=== PATIENT | female | born 1965 | race American Indian/Alaskan Native ===

== ENCOUNTER 2018-01-13 16:36 | Observation (INO) | payer MEDICAID ==
[2018-01-13 16:40] VITALS: BMI 38.2
--- NOTE | 2018-01-13 17:41 | RAD ---
HISTORY: chest pain COMPARISON: No prior. FINDINGS: LUNGS: No active pulmonary disease. PLEURA: No significant pleural effusion identified, no pneumothorax apparent. CARDIOVASCULAR: Atherosclerotic aortic calcifications. Cardiomediastinal silhouette prominent. OSSEOUS STRUCTURES: Degenerative changes. VISUALIZED UPPER ABDOMEN: Normal. OTHER FINDINGS: None. IMPRESSION: No active disease.
[2018-01-13 17:42] LABS: ALB/GLOB RATIO 1.2 (1.1-1.8); CALCIUM 10.1 mg/dL (8.4-10.5); GFR AFRICAN-AMERICAN > 60; GFR NON-AFRICAN AMERICAN > 60
--- NOTE | 2018-01-13 17:45 | ED PDOC ---
Arrival/HPI - General Chief Complaint: Chest Pain Time Seen by Provider: 01/13/18 16:39 Historian: Patient - History of Present Illness Narrative History of Present Illness (Text): 01/13/18 17:42 52-year-old female with a history of hypertension and smoking presents today with mid substernal chest pain. Patient states pain started today while at rest. Patient states the pain is described as a pressure sensation along the anterior chest that radiates into the left axilla. The patient denies shortness of breath. Patient denies abdominal pain. No nausea or vomiting. Patient denies radiation of pain to the back. Patient denies dysuria or urinary frequency. Patient denies headaches or dizziness. No urinary symptoms. no other complaints. Past Medical History - Provider Review Nursing Documentation Reviewed: Yes - Travel History Have you recently traveled outside [place] w/in the past 3 mons?: No - Reproductive Menopause: Yes - Cardiac Hx Cardiac Disorders: Yes Hx Hypotension: Yes - Endocrine/Metabolic Hx Endocrine Disorders: Yes Hx Hypothyroidism: Yes - Psychiatric Hx Substance Use: No - Surgical History Hx Musculoskeletal Surgery: Yes (right ankle) - Anesthesia Hx Anesthesia: Yes Hx Anesthesia Reactions: No Hx Malignant Hyperthermia: No Family/Social History - Physician Review Nursing Documentation Reviewed: Yes Family/Social History: Unknown Family HX Smoking Status: Light Smoker < 10 Cigarettes Daily Hx Alcohol Use: Yes Frequency of alcohol use: Socially Hx Substance Use: No Allergies/Home Meds Allergies/Adverse Reactions: Allergies Penicillins Allergy (Verified 01/13/18 16:41) RASH Home Medications: Home Meds Medication Instructions Recorded Confirmed Bisoprolol/HCTZ [Ziac 5 MG-6.25 MG] 1 tab PO DAILY 01/13/18 01/13/18 Ergocalciferol [Drisdol 50,000 1 cap PO DAILY 01/13/18 01/13/18 Intl Units Cap] Levothyroxine Sodium [Levo-T] 50 mcg PO DAILY 01/13/18 01/13/18 Review of Systems - Review of Systems Constitutional: absent: Fatigue, Fevers Respiratory: absent: SOB, Cough Cardiovascular: Chest Pain. absent: Palpitations, Syncope Gastrointestinal: absent: Abdominal Pain, Constipation, Diarrhea, Nausea, Vomiting Genitourinary Female: absent: Dysuria, Frequency, Hematuria Musculoskeletal: absent: Arthralgias Skin: absent: Rash, Pruritis Neurological: absent: Headache, Dizziness Psychiatric: absent: Anxiety, Depression Physical Exam Vital Signs Reviewed: Yes Vital Signs Temp Pulse Resp BP Pulse Ox 01/13/18 17:08 98.1 F 61 18 169/90 H 98 Temperature: Afebrile Blood Pressure: Hypertensive Pulse: Regular Respiratory Rate: Normal Appearance: Positive for: Well-Appearing, Non-Toxic, Comfortable Pain Distress: None Mental Status: Positive for: Alert and Oriented X 3 - Systems Exam Head: Present: Atraumatic Mouth: Present: Moist Mucous Membranes Neck: Present: Normal Range of Motion Respiratory/Chest: Present: Clear to Auscultation, Good Air Exchange. No: Respiratory Distress, Accessory Muscle Use Cardiovascular: Present: Regular Rate and Rhythm, Normal S1, S2. No: Murmurs Abdomen: No: Tenderness, Distention, Peritoneal Signs, Rebound, Guarding Back: Present: Normal Inspection. No: CVA Tenderness Upper Extremity: Present: Normal ROM Lower Extremity: Present: Normal ROM. No: Edema, CALF TENDERNESS Neurological: Present: GCS=15, Speech Normal Skin: Present: Warm, Dry, Normal Color. No: Rashes Psychiatric: Present: Alert, Oriented x 3 Medical Decision Making ED Course and Treatment: 01/13/18 17:46 pt with chest pain. hypertensive on initial vitals. pt with hx of HTN and + smoker cbc; wnl cmp; wnl trop: wnl ekg; normal sinus rhythm at 64 bpm, no ST elevations normal axis normal intervals cxr: wnl asa pepcid pt reassessment; pt feeling slightly better. i discussed all results in depth with patient; case discussed with Dr. Lacey will Admit observational status to Tele for chest pain r/o acs. as patient with hx of HTN and smoking history. impression; chest pain Admit observational status to tele; Dr. lacey - Lab Interpretations Lab Results: 01/13/18 16:45 01/13/18 16:45 Lab Results 01/13/18 17:44: Urine Color yellow, Urine Appearance Slight-cloudy, Urine pH 6.0 , Ur Specific [place] 1.015, Urine Protein Negative, Urine Glucose (UA) Negative , Urine Ketones Negative, Urine Blood Small H, Urine Nitrate Negative, Urine Bilirubin Negative, Urine Urobilinogen 0.2, Ur Leukocyte Esterase Trace H, Urine RBC 15 - 20, Urine WBC 2 - 5, Ur Epithelial Cells 6 - 8, Amorphous Sediment Small 07/03/18 16:45: Sodium 142, Potassium 3.8, Chloride 106, Carbon Dioxide 26, Anion Gap 14, BUN 13, Creatinine 0.8, Est GFR ( Amer) > 60, Est GFR (Non- Af Amer) > 60, Random Glucose 84, Calcium 10.1, Magnesium 2.1, Total Bilirubin 0.7, AST 22, ALT 14, Alkaline Phosphatase 44, Lactate Dehydrogenase 557, Total Creatine Kinase 138, Troponin I < 0.01, Total Protein 7.4, Albumin 4.0, Globulin 3.4, Albumin/Globulin Ratio 1.2 01/13/18 16:45: WBC 5.9, RBC 4.99, Hgb 13.6, Hct 39.5, MCV 79.2 L, MCH 27.3, MCHC 34.4, RDW 13.8, Plt Count 252, MPV 10.6, Gran % 46.7 L, Lymph % (Auto) 40.7 H, [place] % (Auto) 9.4 H, Eos % (Auto) 2.9, Baso % (Auto) 0.3, Gran # 2.73, Lymph # (Auto) 2.4, [place] # (Auto) 0.6, Eos # (Auto) 0.2, Baso # (Auto) 0.02 - RAD Interpretation Radiology Orders: 01/13/18 17:08 CHEST PORTABLE [RAD] Stat - Medication Orders Current Medication Orders: Discontinued Medications Aspirin (Aspirin) 325 mg PO STAT STA Stop: 01/13/18 18:20 Famotidine (Pepcid) 20 mg IVP STAT STA Stop: 01/13/18 17:10 Last Admin: 01/13/18 17:28 Dose: 20 mg IVP Administration Document 01/13/18 17:28 (Rec: 01/13/18 17:28 [id number]) Charges for Administration # of IVP Administrations 1 Disposition/Present on Arrival - Present on Arrival Any Indicators Present on Arrival: No History of DVT/PE: No History of Uncontrolled Diabetes: No Urinary Catheter: No History of Decub. Ulcer: No History Surgical Site Infection Following: None - Disposition Have Diagnosis and Disposition been Completed?: Yes Diagnosis: Chest pain Disposition: HOSPITALIZED Disposition Time: 18:29 Patient Plan: Observation Patient Problems: Current Active Problems Problem Status Onset Chest pain Acute Condition: FAIR Discharge Instructions (ExitCare): Chest Pain (ED) Forms: [facility] ([place])
[2018-01-13 17:49] LABS: ALT/SGPT 14 U/L (7-56); AST/SGOT 22 U/L (14-36); BLOOD UREA NITROGEN 13 mg/dL (7-21)
[2018-01-13 17:51] LABS: BASO # 0.02 K/mm3 (0.0-2.0); BASO % 0.3 % (0.0-3.0); EOS # 0.2 (0.0-0.7); EOS % 2.9 % (1.5-5.0); GRAN # 2.73 (1.4-6.5); GRAN % 46.7 % (50.0-68.0); HEMOGLOBIN 13.6 g/dL (12.0-16.0); LYMPH # 2.4 (1.2-3.4); LYMPH % 40.7 % (22.0-35.0); MEAN CELL VOLUME 79.2 fl (80.0-105.0); MEAN CORPUSCULAR HEMOGLOBIN 27.3 pg (25.0-35.0); MEAN CORPUSCULAR HGB CONC 34.4 g/dl (31.0-37.0); MEAN PLATELET VOLUME 10.6 fl (7.0-11.0); MONO # 0.6 (0.1-0.6); MONO % 9.4 % (1.0-6.0); RBC 4.99 10^6/uL (3.5-6.1); RED CELL DISTRIBUTION WIDTH 13.8 % (11.5-14.5); WHITE BLOOD COUNT 5.9 10^3/ul (4.5-11.0)
[2018-01-13 17:52] LABS: TROPONIN I < 0.01 ng/mL
[2018-01-13 18:11] LABS: URINE BILIRUBIN NEGATIVE (NEGATIVE); URINE BLOOD SMALL (NEGATIVE); URINE GLUCOSE (UA) NEGATIVE (NEGATIVE); URINE LEUKOCYTE ESTERASE TRACE Leu/uL (NEGATIVE); URINE PROTEIN NEGATIVE mg/dL (<30 mg/dL); URINE UROBILINOGEN 0.2 E.U./dL (<1 E.U./dL)
[2018-01-13 18:25] LABS: URINE AMORPHOUS SEDIMENT SMALL; URINE APPEARANCE SLIGHT-CLOUDY (CLEAR); URINE RBC 15 - 20 /hpf (0-2)
--- NOTE | 2018-01-13 21:35 | CP.PCM.HP ---
<Daniel Colon - Last Filed: 01/13/18 21:31> History of Present Illness - History of Present Illness History of Present Illness: 52 y o female PMHx HTN, hypothyroidism, tobacco use, presents to the ED with mid substernal chest pain. Patient states that the pain started today while at rest. Describes pain as a pressure sensation along the anterior chest that radiates into the left axilla. Denies shortness of breath, abdominal pain, nausea or vomiting, or pain that migrates to her back. Denies dysuria, urinary frequency, headaches, dizziness. Pt states that the pain came on suddenly while she was seated at home, does admit to feeling stressed lately. Present on Admission - Present on Admission Any Indicators Present on Admission: No History of DVT/PE: No History of Uncontrolled Diabetes: No Urinary Catheter: No Decubitus Ulcer Present: No History Surgical Site Infection Following: None Review of Systems - Constitutional Constitutional: As Per HPI. absent: Anorexia, Chills, Daytime Sleepiness, Excessive Sweating, Fatigue, Fever, Frequent Falls, Headache, Increased Appetite , Lethargy, Malaise, Night Sweats, Snoring, Sleep Apnea, Weight Gain, Weight Loss, Weakness, Other - Cardiovascular Cardiovascular: Chest Pain at Rest, Pain Radiating to Arm/Neck/Jaw. absent: As Per HPI, Acrocyanosis, Chest Pain, Chest Pain with Activity, Claudication, Diaphoresis, Dyspnea, Dyspnea on Exertion, Edema, Irregular Heart Rhythm, Leg Edema, Leg Ulcers, Lightheadedness, Orthopnea, Palpitations, Paroxysmal Nocturnal Dyspnea, Pedal Edema, Radiating Pain, Rapid Heart Rate, Slow Heart Rate, Syncope, Other - Respiratory Respiratory: absent: As Per HPI, Cough, Dyspnea, Hemoptysis, Dyspnea on Exertion , Wheezing, Snoring, Stridor, Pain on Inspiration, Chest Congestion, Excessive Mucous Production, Change in Mucous Color, Pain with Coughing, Other - Gastrointestinal Gastrointestinal: absent: As Per HPI, Abdominal Pain, Belching, Bloating, Change in Bowel Habits, Change in Stool Character, Coffee Ground Emesis, Constipation, Cramping, Diarrhea, Dyspepsia, Dysphagia, Early Satiety, Excessive Flatus, Fecal Incontinence, Heartburn, Hematemesis, Hematochezia, Loose Stools, Melena, Nausea, Odynophagia, Temesmus, Vomiting, Other - Musculoskeletal Musculoskeletal: Back Pain, Radiating Pain into Limb. absent: As Per HPI, Abnormal Gait, Arthralgias, Atrophy, Deformity, Joint Swelling, Limited Range of Motion, Loss of Height, Muscle Cramps, Muscle Weakness, Myalgias, Neck Pain, Numbness, Stiffness, Tingling, Other - Neurological Neurological: absent: As Per HPI, Abnormal Gait, Abnormal Hearing, Abnormal Movements, Abnormal Speech, Behavioral Changes, Burning Sensations, Confusion, Convulsions, Disequilibrium, Dizziness, Numbness, Focal Weakness, Frequent Falls , Headaches, Lack of Coordination, Loss of Vision, Memory Loss, Paresthesias, Radicular Pain, Restless Legs, Sensory Deficit, Syncope, Tingling, Tremor, Vertigo, Weakness, Other Visual Disturbances, Other - Endocrine Endocrine: absent: As Per HPI, Change in Body Appearance, Change in Libido, Cold Intolorance, Deepening of Voice, Excessive Sweating, Fatigue, Flushing, Heat Intolorance, Increase in Ring/Shoe/Hat Size, Palpitations, Polydipsia, Polyphagia, Polyuria, Other Past Patient History - Past Medical History & Family History Past Medical History?: Yes - Past Social History Smoking Status: Light Smoker < 10 Cigarettes Daily Alcohol: None Drugs: Denies - CARDIAC Hx Cardiac Disorders: Yes Hx Hypertension: Yes - ENDOCRINE/METABOLIC Hx Endocrine Disorders: Yes Hx Hypothyroidism: Yes - PSYCHIATRIC Hx Substance Use: No - SURGICAL HISTORY Hx Musculoskeletal Surgery: Yes (right ankle) - ANESTHESIA Hx Anesthesia: Yes Hx Anesthesia Reactions: No Hx Malignant Hyperthermia: No Meds Allergies/Adverse Reactions: Allergies Allergy/AdvReac Type Severity Reaction Status Date / Time Penicillins Allergy RASH Verified 01/13/18 16:41 Physical Exam - Constitutional Appears: Non-toxic, No Acute Distress - Head Exam Head Exam: ATRAUMATIC, NORMOCEPHALIC - Eye Exam Eye Exam: EOMI, Normal appearance, PERRL - ENT Exam ENT Exam: Mucous Membranes Moist, Normal Exam, Normal Oropharynx - Neck Exam Neck exam: Positive for: Full Rom, Normal Inspection - Respiratory Exam Respiratory Exam: Clear to Auscultation Bilateral, NORMAL BREATHING PATTERN - Cardiovascular Exam Cardiovascular Exam: +S1, +S2 - GI/Abdominal Exam GI & Abdominal Exam: Normal Bowel Sounds, Soft - Extremities Exam Extremities exam: Positive for: full ROM, normal capillary refill, normal inspection, pedal pulses present - Back Exam Back exam: FULL ROM, NORMAL INSPECTION - Neurological Exam Neurological exam: Alert, CN II-XII Intact, Normal Gait, Oriented x3 - Psychiatric Exam Psychiatric exam: Normal Affect, Normal Mood - Skin Skin Exam: Dry, Intact, Normal Color, Warm Results - Vital Signs Recent Vital Signs: Last Vital Signs Temp 98.1 F 01/13/18 17:08 Pulse 55 L 01/13/18 19:55 Resp 18 01/13/18 19:55 BP 142/77 01/13/18 19:55 Pulse Ox 97 01/13/18 19:55 - Labs Result Diagrams: 01/13/18 16:45 01/13/18 16:45 - EKG Data EKG Interpreted by: ER Physician EKG shows normal: Sinus rhythm Rate: Normal Assessment & Plan - Assessment and Plan (Free Text) Assessment: 52 y o female PMhx HTN, hypothyroidism, tobacco abuse, presents with new-onset chest pain to ED. R/o acute coronary syndrome, pt to be admitted for observation. Plan: Chest pain R/o ACS as etiology EKG in ED demonstrated no St-T changes Pt states chest pain has improved since episode began Trend troponins ASA 81 mg daily Atorvastatin 20 mg daily Cardiology consulted, f/u recs Hx HTN Atenolol 25 mg daily HCTZ 12.5 mg daily BP elevated, continue to trend Hx hypothyroidism C/w synthroid 50 mcg daily DVT ppx: SCDs Plan d/w attending, Dr. Pinto <Joan Pinto - Last Filed: 01/14/18 07:45> Results - Vital Signs Recent Vital Signs: Last Vital Signs Temp 98.1 F 01/14/18 05:34 Pulse 64 01/14/18 05:34 Resp 20 01/14/18 05:34 BP 140/80 01/14/18 05:34 Pulse Ox 94 L 01/14/18 05:34 - Labs Result Diagrams: 01/13/18 16:45 01/13/18 16:45 Labs: Laboratory Results - last 24 hr 01/14/18 00:23 Troponin I < 0.01 Attending/Attestation - Attestation I have personally seen and examined this patient.: Yes I have fully participated in the care of the patient.: Yes I have reviewed all pertinent clinical information: Yes Notes (Text): 01/13/18 52 year old female with past medical history of hypertension, dyslipidemia, hypothyroidism and tobacco use who presents with complaint of chest pain. Will admit to telemetry unit to rule out ACS. Serial cardiac enzymes are ordered. Cardiology evaluation is requested. Echocardiogram is ordered. Continue with home medications for hypertension, dyslipidemia and hypothyroidism. She was counselled on smoking cessation. Joan Pinto MD Hospitalist.
[2018-01-14] MEDS ORDERED: Levothyroxine 50 MCG TAB PO SCH (06:00)
[2018-01-14 08:31] LABS: BASO # 0.03 K/mm3 (0.0-2.0); BASO % 0.6 % (0.0-3.0); EOS # 0.1 (0.0-0.7); EOS % 2.6 % (1.5-5.0); GRAN # 2.14 (1.4-6.5); GRAN % 42.8 % (50.0-68.0); HEMOGLOBIN 13.4 g/dL (12.0-16.0); LYMPH # 2.3 (1.2-3.4); LYMPH % 45.6 % (22.0-35.0); MEAN CELL VOLUME 79.6 fl (80.0-105.0); MEAN CORPUSCULAR HEMOGLOBIN 26.7 pg (25.0-35.0); MEAN CORPUSCULAR HGB CONC 33.6 g/dl (31.0-37.0); MEAN PLATELET VOLUME 9.8 fl (7.0-11.0); MONO # 0.4 (0.1-0.6); MONO % 8.4 % (1.0-6.0); RBC 5.01 10^6/uL (3.5-6.1); RED CELL DISTRIBUTION WIDTH 13.8 % (11.5-14.5)
[2018-01-14 08:38] LABS: INR 1.12 (0.93-1.08); PROTHROMBIN TIME 12.9 SECONDS (9.4-12.5)
[2018-01-14 08:49] LABS: TROPONIN I < 0.01 ng/mL
[2018-01-14 08:54] LABS: FREE T4 1.28 ng/dL (0.78-2.19)
[2018-01-14 09:21] VITALS: BP 139/88
[2018-01-14 09:41] LABS: HDL CHOLESTEROL 40 mg/dL (29-60)
[2018-01-14 09:51] LABS: LDL CHOLESTEROL 69 mg/dL (0-129)
[2018-01-14 10:24] VITALS: PULSE 57; RESP 18; TEMP 98.6; O2SAT 99
--- NOTE | 2018-01-14 10:58 | CON ---
DATE: 01/14/2018 SERVICE: Cardiology. PHYSICIAN: Kendall Ralph MD. REASON FOR THE CONSULTATION: Chest pain, uncontrolled hypertension. BRIEF CLINICAL HISTORY: This is a 52-year-old female, active tobacco abuse, history of hypertension. Came in with complaint of right-sided chest pain that went to the left side of the breast. Denies any prior episode of chest pain. No dyspnea on exertion or radiation of the chest pain to the arm or shoulder or any angina on exertion. PAST MEDICAL HISTORY: Past history significant for hypertension, it started at the age of 30. SOCIAL HISTORY: The patient used to smoke a pack a day at least for 20 years, but now cut down to 5-6 cigarettes a day. CURRENT MEDICATIONS: The patient was taking bisoprolol with hydrochlorothiazide combination 1 tablet daily. At one point, the patient was at 10 mg, but slowed the heart rate, so cut down back to 5 mg daily. Also, takes levothyroxine 50 mcg daily. ALLERGY: TO PENICILLIN. PAST SURGICAL HISTORY: Significant for ankle surgery a couple of years ago and history of breast reduction surgery 2 years ago. FAMILY HISTORY: Noncontributory. REVIEW OF SYSTEMS: As per HPI. PHYSICAL EXAMINATION: VITAL SIGNS: Height of the patient 5 feet, 5 inches. Weight of the patient 230 pounds. Body mass index 38.3 kg/m2. Rest of the examination as follows; temperature afebrile, heart rate 54, blood pressure 139/88. HEENT: PERRLA. Extraocular muscles intact. NECK: Supple. No carotid bruit. No thyromegaly. CHEST: Clear to auscultation. HEART: S1 and S2 regular. ABDOMEN: Soft. EXTREMITIES: Clubbing and cyanosis negative. LABORATORY DATA: EKG shows normal sinus at rate of 64. No acute ST-T changes noted. Blood workup as follows; WBC 5, hemoglobin 13.4, hematocrit 39.9, platelet count 211. Chemistry shows sodium 142, potassium 3.8, chloride 106, carbon dioxide 26, anion gap of 14, BUN 13, creatinine 0.8. Troponin 0.01, 0.01 x3 negative. IMPRESSION: No evidence of acute myocardial infarction, atypical chest pain, hypertension, obesity, multiple risk factors of coronary artery disease, suggest echocardiogram and stress test as outpatient. Discuss with the residents and the team taking care of Dr. Millie. The patient can be discharged and we will schedule stress test as outpatient. Interim, suggest to continue the patient's bisoprolol and hydrochlorothiazide, which we will start 10 mg of lisinopril today and if remain stable, possible discharge home today. We will schedule the stress test as outpatient. Kendall Ralph MD
--- NOTE | 2018-01-14 13:45 | CP.PCM.DIS ---
<IsaiahDaniel - Last Filed: 01/14/18 13:55> Provider - Provider Date of Admission: 01/13/18 18:34 Attending physician: Joan Pinto MD Time Spent in preparation of Discharge (in minutes): 45 Hospital Course - Lab Results Lab Results: Most Recent Lab Values WBC 5.0 10^3/ul (4.5-11.0) 01/14/18 08:10 RBC 5.01 10^6/uL (3.5-6.1) 01/14/18 08:10 Hgb 13.4 g/dL (12.0-16.0) 01/14/18 08:10 Hct 39.9 % (36.0-48.0) 01/14/18 08:10 MCV 79.6 fl (80.0-105.0) L 01/14/18 08:10 MCH 26.7 pg (25.0-35.0) 01/14/18 08:10 MCHC 33.6 g/dl (31.0-37.0) 01/14/18 08:10 RDW 13.8 % (11.5-14.5) 01/14/18 08:10 Plt Count 211 10^3/uL (120.0-450.0) 01/14/18 08:10 MPV 9.8 fl (7.0-11.0) 01/14/18 08:10 Gran % 42.8 % (50.0-68.0) L 01/14/18 08:10 Lymph % (Auto) 45.6 % (22.0-35.0) H 01/14/18 08:10 [place] % (Auto) 8.4 % (1.0-6.0) H 01/14/18 08:10 Eos % (Auto) 2.6 % (1.5-5.0) 01/14/18 08:10 Baso % (Auto) 0.6 % (0.0-3.0) 01/14/18 08:10 Gran # 2.14 (1.4-6.5) 01/14/18 08:10 Lymph # (Auto) 2.3 (1.2-3.4) 01/14/18 08:10 [place] # (Auto) 0.4 (0.1-0.6) 01/14/18 08:10 Eos # (Auto) 0.1 (0.0-0.7) 01/14/18 08:10 Baso # (Auto) 0.03 K/mm3 (0.0-2.0) 01/14/18 08:10 PT 12.9 SECONDS (9.4-12.5) H 01/14/18 08:10 INR 1.12 (0.93-1.08) H 01/14/18 08:10 APTT 31.0 Seconds (25.1-36.5) 01/14/18 08:10 Sodium 142 mmol/L (132-148) 01/13/18 16:45 Potassium 3.8 mmol/L (3.6-5.0) 01/13/18 16:45 Chloride 106 mmol/L (98-107) 01/13/18 16:45 Carbon Dioxide 26 mmol/L (21-33) 01/13/18 16:45 Anion Gap 14 (10-20) 01/13/18 16:45 BUN 13 mg/dL (7-21) 01/13/18 16:45 Creatinine 0.8 mg/dl (0.7-1.2) 01/13/18 16:45 Est GFR ( Amer) > 60 01/13/18 16:45 Est GFR (Non-Af Amer) > 60 01/13/18 16:45 Random Glucose 84 mg/dL (70-110) 01/13/18 16:45 Calcium 10.1 mg/dL (8.4-10.5) 01/13/18 16:45 Phosphorus 4.3 mg/dL (2.5-4.5) 01/14/18 08:10 Magnesium 2.1 mg/dL (1.7-2.2) 01/14/18 08:10 Total Bilirubin 0.7 mg/dL (0.2-1.3) 01/13/18 16:45 AST 22 U/L (14-36) 01/13/18 16:45 ALT 14 U/L (7-56) 01/13/18 16:45 Alkaline Phosphatase 44 U/L (38-126) 01/13/18 16:45 Lactate Dehydrogenase 557 U/L (333-699) 01/13/18 16:45 Total Creatine Kinase 138 U/L (35-230) 01/13/18 16:45 Troponin I < 0.01 ng/mL 01/14/18 08:10 Total Protein 7.4 g/dL (5.8-8.3) 01/13/18 16:45 Albumin 4.0 g/dL (3.0-4.8) 01/13/18 16:45 Globulin 3.4 gm/dL 01/13/18 16:45 Albumin/Globulin Ratio 1.2 (1.1-1.8) 01/13/18 16:45 Triglycerides 155 mg/dL (35-160) 01/14/18 09:29 Cholesterol 154 mg/dL (130-200) 01/14/18 09:29 LDL Cholesterol Direct 69 mg/dL (0-129) 01/14/18 09:29 HDL Cholesterol 40 mg/dL (29-60) 01/14/18 09:29 Free T4 1.28 ng/dL (0.78-2.19) 01/14/18 08:10 TSH 3rd Generation 1.52 mIU/mL (0.46-4.68) 01/14/18 08:10 Urine Color yellow (YELLOW) 01/13/18 17:44 Urine Appearance Slight-cloudy (CLEAR) 01/13/18 17:44 Urine pH 6.0 (4.7-8.0) 01/13/18 17:44 Ur Specific [place] 1.015 (1.005-1.035) 01/13/18 17:44 Urine Protein Negative mg/dL (<30 mg/dL) 01/13/18 17:44 Urine Glucose (UA) Negative mg/dL (NEGATIVE) 01/13/18 17:44 Urine Ketones Negative mg/dL (NEGATIVE) 01/13/18 17:44 Urine Blood Small (NEGATIVE) H 01/13/18 17:44 Urine Nitrate Negative (NEGATIVE) 01/13/18 17:44 Urine Bilirubin Negative (NEGATIVE) 01/13/18 17:44 Urine Urobilinogen 0.2 E.U./dL (<1 E.U./dL) 01/13/18 17:44 Ur Leukocyte Esterase Trace Day/uL (NEGATIVE) H 01/13/18 17:44 Urine RBC 15 - 20 /hpf (0-2) 01/13/18 17:44 Urine WBC 2 - 5 /hpf (0-6) 01/13/18 17:44 Ur Epithelial Cells 6 - 8 /hpf (0-5) 01/13/18 17:44 Amorphous Sediment Small 01/13/18 17:44 - Hospital Course Hospital Course: Daniel Colon DO PGY-1, [employer]/Woman, Medicine Discharge Summary This is a 52 y o female PMhx HTN and hypothyroidism who presented to the ED on with c/o mid substernal chest pain, localized to underneath the L breast, that migrated to the L axilla. Pt stated that the pain started at rest while seated at home, denied any inciting factors prior to episode or history of this occurring in the past. In ED, pt received aspirin, EKG was done that demonstrated no acute ST-T changes, and pt's chest pain improved compared to initial presentation. Serial troponin levels were not elevated. Pt's blood pressure was also elevated on presentation in ED, and thus was placed on HCTZ and atenolol on admission. Pt was admitted for observation to r/o ACS as etiology of chest pain. Cardiology was consulted (Dr. Ralph), who cleared patient and recommended further workup as outpatient for echo and stress test. He additionally added lisinopril on patient regimen for blood pressure control. On day of discharge, pt was ambulating, tolerating diet, voiding and pos BM, and her chest pain resolved. She was discharged to home in stable condition on , and instructed to establish care with primary physician, and follow-up with Dr. Ralph (Cardiology) in the clinic. - Date & Time of H&P Date of H&P: 01/14/18 Discharge Exam - Head Exam Head Exam: ATRAUMATIC, NORMOCEPHALIC - Eye Exam Eye Exam: EOMI, Normal appearance, PERRL - ENT Exam ENT Exam: Mucous Membranes Moist, Normal Exam, Normal Oropharynx - Neck Exam Neck exam: Full Rom, Normal Inspection - Respiratory Exam Respiratory Exam: Clear to PA & Lateral, NORMAL BREATHING PATTERN, UNREMARKABLE - Cardiovascular Exam Cardiovascular Exam: REGULAR RHYTHM, +S1, +S2 - GI/Abdominal Exam GI & Abdominal Exam: Normal Bowel Sounds, Soft, Unremarkable - Extremities Exam Extremities exam: full ROM, normal capillary refill, normal inspection - Neurological Exam Neurological exam: Alert, Normal Gait, Oriented x3 - Psychiatric Exam Psychiatric exam: Normal Affect, Normal Mood - Skin Skin Exam: Dry, Intact, Normal Color, Warm Discharge Plan - Discharge Medications Prescriptions: Famotidine [Pepcid] 40 mg PO DAILY #30 tablet Lisinopril [Zestril] 10 mg PO DAILY #30 tablet - Follow Up Plan Condition: FAIR Disposition: HOME/ ROUTINE Instructions: Chest Pain (DC), Chest Pain (GEN) Additional Instructions: Please continue home medications please follow up with Dr. Ralph for stress test and echo please return to ed if symptoms persist or worsen. Referrals: Kendall Ralph MD [Staff Provider] - <Joan Pinto - Last Filed: 01/14/18 14:34> Provider - Provider Date of Admission: 01/13/18 18:34 Attending physician: Joan Pinto MD Hospital Course - Lab Results Lab Results: Most Recent Lab Values WBC 5.0 10^3/ul (4.5-11.0) 01/14/18 08:10 RBC 5.01 10^6/uL (3.5-6.1) 01/14/18 08:10 Hgb 13.4 g/dL (12.0-16.0) 01/14/18 08:10 Hct 39.9 % (36.0-48.0) 01/14/18 08:10 MCV 79.6 fl (80.0-105.0) L 01/14/18 08:10 MCH 26.7 pg (25.0-35.0) 01/14/18 08:10 MCHC 33.6 g/dl (31.0-37.0) 01/14/18 08:10 RDW 13.8 % (11.5-14.5) 01/14/18 08:10 Plt Count 211 10^3/uL (120.0-450.0) 01/14/18 08:10 MPV 9.8 fl (7.0-11.0) 01/14/18 08:10 Gran % 42.8 % (50.0-68.0) L 01/14/18 08:10 Lymph % (Auto) 45.6 % (22.0-35.0) H 01/14/18 08:10 [place] % (Auto) 8.4 % (1.0-6.0) H 01/14/18 08:10 Eos % (Auto) 2.6 % (1.5-5.0) 01/14/18 08:10 Baso % (Auto) 0.6 % (0.0-3.0) 01/14/18 08:10 Gran # 2.14 (1.4-6.5) 01/14/18 08:10 Lymph # (Auto) 2.3 (1.2-3.4) 01/14/18 08:10 [place] # (Auto) 0.4 (0.1-0.6) 01/14/18 08:10 Eos # (Auto) 0.1 (0.0-0.7) 01/14/18 08:10 Baso # (Auto) 0.03 K/mm3 (0.0-2.0) 01/14/18 08:10 PT 12.9 SECONDS (9.4-12.5) H 01/14/18 08:10 INR 1.12 (0.93-1.08) H 01/14/18 08:10 APTT 31.0 Seconds (25.1-36.5) 01/14/18 08:10 Sodium 142 mmol/L (132-148) 01/13/18 16:45 Potassium 3.8 mmol/L (3.6-5.0) 01/13/18 16:45 Chloride 106 mmol/L (98-107) 01/13/18 16:45 Carbon Dioxide 26 mmol/L (21-33) 01/13/18 16:45 Anion Gap 14 (10-20) 01/13/18 16:45 BUN 13 mg/dL (7-21) 01/13/18 16:45 Creatinine 0.8 mg/dl (0.7-1.2) 01/13/18 16:45 Est GFR ( Amer) > 60 01/13/18 16:45 Est GFR (Non-Af Amer) > 60 01/13/18 16:45 Random Glucose 84 mg/dL (70-110) 01/13/18 16:45 Calcium 10.1 mg/dL (8.4-10.5) 01/13/18 16:45 Phosphorus 4.3 mg/dL (2.5-4.5) 01/14/18 08:10 Magnesium 2.1 mg/dL (1.7-2.2) 01/14/18 08:10 Total Bilirubin 0.7 mg/dL (0.2-1.3) 01/13/18 16:45 AST 22 U/L (14-36) 01/13/18 16:45 ALT 14 U/L (7-56) 01/13/18 16:45 Alkaline Phosphatase 44 U/L (38-126) 01/13/18 16:45 Lactate Dehydrogenase 557 U/L (333-699) 01/13/18 16:45 Total Creatine Kinase 138 U/L (35-230) 01/13/18 16:45 Troponin I < 0.01 ng/mL 01/14/18 08:10 Total Protein 7.4 g/dL (5.8-8.3) 01/13/18 16:45 Albumin 4.0 g/dL (3.0-4.8) 01/13/18 16:45 Globulin 3.4 gm/dL 01/13/18 16:45 Albumin/Globulin Ratio 1.2 (1.1-1.8) 01/13/18 16:45 Triglycerides 155 mg/dL (35-160) 01/14/18 09:29 Cholesterol 154 mg/dL (130-200) 01/14/18 09:29 LDL Cholesterol Direct 69 mg/dL (0-129) 01/14/18 09:29 HDL Cholesterol 40 mg/dL (29-60) 01/14/18 09:29 Free T4 1.28 ng/dL (0.78-2.19) 01/14/18 08:10 TSH 3rd Generation 1.52 mIU/mL (0.46-4.68) 01/14/18 08:10 Urine Color yellow (YELLOW) 01/13/18 17:44 Urine Appearance Slight-cloudy (CLEAR) 01/13/18 17:44 Urine pH 6.0 (4.7-8.0) 01/13/18 17:44 Ur Specific [place] 1.015 (1.005-1.035) 01/13/18 17:44 Urine Protein Negative mg/dL (<30 mg/dL) 01/13/18 17:44 Urine Glucose (UA) Negative mg/dL (NEGATIVE) 01/13/18 17:44 Urine Ketones Negative mg/dL (NEGATIVE) 01/13/18 17:44 Urine Blood Small (NEGATIVE) H 01/13/18 17:44 Urine Nitrate Negative (NEGATIVE) 01/13/18 17:44 Urine Bilirubin Negative (NEGATIVE) 01/13/18 17:44 Urine Urobilinogen 0.2 E.U./dL (<1 E.U./dL) 01/13/18 17:44 Ur Leukocyte Esterase Trace Day/uL (NEGATIVE) H 01/13/18 17:44 Urine RBC 15 - 20 /hpf (0-2) 01/13/18 17:44 Urine WBC 2 - 5 /hpf (0-6) 01/13/18 17:44 Ur Epithelial Cells 6 - 8 /hpf (0-5) 01/13/18 17:44 Amorphous Sediment Small 01/13/18 17:44 Attending/Attestation - Attestation I have personally seen and examined this patient.: Yes I have fully participated in the care of the patient.: Yes I have reviewed all pertinent clinical information, including history, physical exam and plan: Yes Notes (Text): 01/14/18 14:33 52 year old female with past medical history of hypertension, dyslipidemia, hypothyroidism and tobacco use who presented with complaint of chest pain. Serial cardiac enzymes were negative and ACS was ruled out. Her symptoms resolved. She was seen by cardiology who recommended outpatient stress test and echocardiogram. Patient is discharged home to follow up with her pmd. Follow up with cardiology for outpatient stress test and echocardiogram. She was counselled on smoking cessation. Joan Pinto MD Hospitalist.
--- NOTE | 2018-01-15 07:37 | CARD ---
APPROVED REPORT EKG Measurement Heart [id number] MI [id number] [id number] <Conclusion> Normal sinus rhythm Nonspecific T wave abnormality Abnormal ECG
== END 2018-01-14 12:22 | disposition home or self-care (01) ==
LOC: ED 16:36 → ERH 18:34 → 2RSO 20:35
PROVIDERS: ADMIT Internal Medicine; ATTEND Internal Medicine
DX: R07.89 Other chest pain (principal); I10 Essential (primary) hypertension; E03.9 Hypothyroidism, unspecified; F17.210 Nicotine dependence, cigarettes, uncomplicated; E66.9 Obesity, unspecified; E78.5 Hyperlipidemia, unspecified; Z68.38 Body mass index [BMI] 38.0-38.9, adult; Z88.0 Allergy status to penicillin
CPT/HCPCS: 36415; 71045; 80053; 80061; 81001; 82550; 83615; 83735; 84100; 84439; 84443; 84484; 85025; 85610; 85730; 87086; 93005; 96374; 99285; G0378

== ENCOUNTER 2018-08-30 11:09 | Emergency (ER) | payer MEDICAID ==
[2018-08-30 11:10] VITALS: BMI 41.5
[2018-08-30 11:24] VITALS: TEMP 98.4
[2018-08-30 11:45] VITALS: RESP 18; O2SAT 98
--- NOTE | 2018-08-30 11:47 | ED PDOC ---
Arrival/HPI - General Chief Complaint: Abnormal Skin Integrity Time Seen by Provider: 08/30/18 11:16 Historian: Patient - History of Present Illness Narrative History of Present Illness (Text): 08/30/18 11:43 52yo female with pmhx of hypertension, hypopthyroid who present with complaint of open wound to her right lateral ankle. Notes ORIF to the ankle in 2016. States it opened up few days ago and she has been applying topical antibiotics to the area. Notes pain to the area. Denies redness, purulent discharge, trauma, nausea, vomiting, calf pain, any other complaint. Past Medical History - Provider Review Nursing Documentation Reviewed: Yes - Reproductive Currently : No - Cardiac Hx Cardiac Disorders: Yes Hx Hypotension: Yes - Pulmonary Hx Respiratory Disorders: No - Neurological Hx Neurological Disorder: No - HEENT Hx HEENT Disorder: No - Renal Hx Renal Disorder: No - Endocrine/Metabolic Hx Endocrine Disorders: Yes Hx Hypothyroidism: Yes - Hematological/Oncological Hx Blood Disorders: No - Integumentary Hx Dermatological Disorder: No - Musculoskeletal/Rheumatological Hx Musculoskeletal Disorders: Yes Hx Falls: Yes Hx Fractures: Yes (RT.ANKLE 2012) - Gastrointestinal Hx Gastrointestinal Disorders: Yes Hx Gastroesophageal Reflux: Yes - Genitourinary/Gynecological Hx Genitourinary Disorders: Yes Hx Urinary Tract Infection: Yes - Psychiatric Hx Psychophysiologic Disorder: No Hx Substance Use: No - Surgical History Hx Musculoskeletal Surgery: Yes - Anesthesia Hx Anesthesia: Yes Hx Anesthesia Reactions: Yes (HEADACHE) Family/Social History - Physician Review Nursing Documentation Reviewed: Yes Family/Social History: Unknown Family HX Smoking Status: Light Smoker < 10 Cigarettes Daily Hx Alcohol Use: Yes Frequency of alcohol use: Socially Hx Substance Use: No Allergies/Home Meds Allergies/Adverse Reactions: Allergies Penicillins Allergy (Intermediate, Verified 08/30/18 11:17) RASH Home Medications: Home Meds Medication Instructions Recorded Confirmed RX: Bisoprolol/HCTZ [Ziac 5-6.25 1 tab PO DAILY 01/13/18 08/30/18 mg] RX: Ergocalciferol [Drisdol 50,000 1 cap PO DAILY 01/13/18 08/30/18 Intl Units Cap] RX: Levothyroxine Sodium [Levo-T] 50 mcg PO DAILY 01/13/18 08/30/18 RX: amLODIPine [Norvasc] 10 mg PO DAILY 08/30/18 08/30/18 Review of Systems - Physician Review All systems were reviewed & negative as marked: Yes - Review of Systems Constitutional: Normal Eyes: Normal ENT: Normal Respiratory: Normal Cardiovascular: Normal Gastrointestinal: Normal Genitourinary Female: Normal Musculoskeletal: Normal Skin: Other Neurological: Normal (Open wound to right ankle) Endocrine: Normal Hemo/Lymphatic: Normal Psychiatric: Normal Physical Exam Vital Signs Reviewed: Yes Vital Signs Temp Pulse Resp BP Pulse Ox 08/30/18 11:19 98.4 F 60 17 130/78 100 Temperature: Afebrile Blood Pressure: Normal Pulse: Regular Respiratory Rate: Normal Appearance: Positive for: Well-Appearing, Non-Toxic, Comfortable Pain Distress: None Mental Status: Positive for: Alert and Oriented X 3 - Systems Exam Head: Present: Atraumatic, Normocephalic Pupils: Present: PERRL Extroacular Muscles: Present: EOMI Conjunctiva: Present: Normal Mouth: Present: Moist Mucous Membranes Neck: Present: Normal Range of Motion Respiratory/Chest: Present: Clear to Auscultation, Good Air Exchange. No: Respiratory Distress, Accessory Muscle Use Cardiovascular: Present: Regular Rate and Rhythm, Normal S1, S2. No: Murmurs Abdomen: No: Tenderness, Distention, Peritoneal Signs Back: Present: Normal Inspection Upper Extremity: Present: Normal Inspection. No: Cyanosis, Edema Lower Extremity: Present: NORMAL PULSES, Normal ROM, Tenderness (Surrounding small open wound to lateral ankle), Swelling, Temperature Abnormalties (Warm to touch), Neurovascularly Intact, Capillary Refill < 2 s, Other (Small approximately 0.5cm circular shaped wound with clean margin noted to lateral right ankle). No: Edema, CALF TENDERNESS, Erythema Neurological: Present: GCS=15, CN II-XII Intact, Speech Normal Skin: Present: Warm, Dry, Normal Color. No: Rashes Psychiatric: Present: Alert, Oriented x 3, Normal Insight, Normal Concentration Medical Decision Making ED Course and Treatment: 08/31/18 19:21 Pt present to ED for stated history. she was hemodynamically stable and comfortable in ED Ankle xray IMPRESSION: Marked irregularity with cortical thickening of the distal fibula. Cortical thickening extends proximally involving the distal 2/3 of the right fibula. There appears to be partial fusion changes of the distal right tibia and fibula as well. Findings may represent old posttraumatic sequela note however the sequela of chronic osteomyelitis not excluded. Clinical correlation recommended.. The several small corticated densities within the soft tissues subjacent to the inferior tip of the medial malleolus may represent old posttraumatic mineralization. There is significant lateral and moderate medial soft tissue swelling; rule out cellulitis. Infiltration changes of the subcutaneous tissues extending proximally over the distal half of the calf as well. No evidence of subcutaneous emphysema Result was DW the pt. wound was cleaned, bacitracine applied and dressed. Pt was placed on oral abx and referred to a Cryptologist - RAD Interpretation Radiology Orders: 08/30/18 11:35 ANKLE RIGHT 3 VIEWS ROUTINE [RAD] Stat Disposition/Present on Arrival - Present on Arrival Any Indicators Present on Arrival: No History of DVT/PE: No History of Uncontrolled Diabetes: No Urinary Catheter: No History of Decub. Ulcer: No History Surgical Site Infection Following: None - Disposition Have Diagnosis and Disposition been Completed?: Yes Diagnosis: Open wound, Ankle pain Disposition: HOME/ ROUTINE Disposition Time: 13:10 Patient Plan: Discharge Condition: STABLE Discharge Instructions (ExitCare): Wound Care (DC) Additional Instructions: Follow up with your doctor/Cryptologist Return to ED for any new or worsening symptoms Prescriptions: RX: Clindamycin [Cleocin] 300 mg PO TID #21 cap Referrals: Shant Carrasco DPM [Staff Provider] - Follow up with primary Forms: [employer] (Maltese)
[2018-08-30 13:02] VITALS: BP 128/69; PULSE 64
--- NOTE | 2018-08-30 13:23 | RAD ---
Date of service: 08/30/2018 PROCEDURE: Right Ankle Radiographs. HISTORY: Ankle pain COMPARISON: None available. FINDINGS: BONES: There is marked irregularity with cortical thickening of the distal fibula. Cortical thickening extends proximally involving the distal 2/3 of the right fibula. There appears to be partial fusion changes of the distal right tibia and fibula as well. Findings may represent old posttraumatic sequela note however the sequela of chronic osteomyelitis not excluded. Clinical correlation recommended.. The several small corticated densities within the soft tissues subjacent to the inferior tip of the medial malleolus may represent old posttraumatic mineralization. There is significant lateral and moderate medial soft tissue swelling; rule out cellulitis. Infiltration changes of the subcutaneous tissues extending proximally over the distal half of the calf as well. No evidence of subcutaneous emphysema JOINTS: Ankle mortise maintained however degenerative osteoarthritis present SOFT TISSUES: As above. OTHER FINDINGS: None. IMPRESSION: Marked irregularity with cortical thickening of the distal fibula. Cortical thickening extends proximally involving the distal 2/3 of the right fibula. There appears to be partial fusion changes of the distal right tibia and fibula as well. Findings may represent old posttraumatic sequela note however the sequela of chronic osteomyelitis not excluded. Clinical correlation recommended.. The several small corticated densities within the soft tissues subjacent to the inferior tip of the medial malleolus may represent old posttraumatic mineralization. There is significant lateral and moderate medial soft tissue swelling; rule out cellulitis. Infiltration changes of the subcutaneous tissues extending proximally over the distal half of the calf as well. No evidence of subcutaneous emphysema
== END 2018-08-30 13:46 | disposition home or self-care (01) ==
LOC: ED 11:09
DX: S91.001A Unspecified open wound, right ankle, initial encounter (principal); X58.XXXA Exposure to other specified factors, initial encounter; M25.571 Pain in right ankle and joints of right foot